=== PATIENT | female | born 1940 | race Caucasian/White ===

== ENCOUNTER 2018-11-10 07:09 | Inpatient (IN) | payer MEDICAID ==
[~2018-11-10] VITALS: Ht 162.6 cm; Wt 75.4 kg
[~2018-11-10 07:09] MED LIST: BENZAPRIL
[2018-11-10] MEDS ORDERED: ATEN50TA MT (08:18)
[2018-11-10] MEDS ORDERED: AMLO5TAB88 PO (08:18)
[2018-11-10] MEDS ORDERED: ATOR20TA65 MT (08:18)
[2018-11-10] MEDS ORDERED: ASPI-1158 MT (08:18)
[2018-11-10] MEDS ORDERED: CHOL200074 MT (08:18)
[2018-11-10] MEDS ORDERED: FENTANYL CITRATE/PF 50MCG/ML 2ML VIAL ONE (08:59)
[2018-11-10] MEDS ORDERED: LIDOCAINE HCL 1% 20ML VIAL (Pyxis) INJ ONE (08:59)
[2018-11-10] MEDS ORDERED: MIDAZOLAM HCL 2 MG/2 ML VIAL ONE (08:59)
[2018-11-10] MEDS ORDERED: IODIXANOL 320MG/ML 100 ML BOTTLE IV ONE (08:59)
[2018-11-10 09:09] LABS: HEMATOCRIT 33.2 % (36.0-48.0); HEMOGLOBIN 11.1 g/dL (12.0-16.0); MEAN CORPUSCULAR HEMOGLOBIN 28.8 pg (28.0-32.0); MEAN CORPUSCULAR VOLUME 86.4 fL (81.0-99.0); PLATELET 189 x1000/uL (130-400); RED BLOOD CELL COUNT 3.85 mill/uL (4.2-5.4); RED CELL DISTRIBUTION WIDTH 15.7 % (11.6-14.6)
[2018-11-10 09:11] LABS: CHLORIDE 111 mEq/L (98-107)
[2018-11-10] MEDS ORDERED: POTASSIUM CHLORIDE 20MEQ TABLET SR PO ONE (10:30)
[2018-11-10] MEDS ORDERED: NICARDIPINE 100MCG/ML 10ML VIAL (CATH LAB) IV ONE (10:34)
[2018-11-10] MEDS ORDERED: NITROGLYCERIN 50MCG/ML 10ML VIAL (CATH LAB) IV ONE (10:34)
[2018-11-10] MEDS ORDERED: HEPARIN SODIUM 1,000 UNIT/1ML VIAL IV ONE (10:34)
[2018-11-10] MEDS ORDERED: ACETAMINOPHEN 325MG TABLET PO PRN (13:00)
[2018-11-10 13:17] LABS: BG BASE EXCESS -3.7 mmol/L (-2.0-2.0); BG CARBOXYHEMOGLOBIN 0.3 % (0.5-1.5); BG DEOXYHEMOGLOBIN 3.6 % (0.0-5.0); BG FRACTION INSPIRED OXYGEN 28; BG HCO3 ACT 20.9 mmol/L (22.0-26.0); BG METHEMOGLOBIN 0.6 % (0.0-1.5); BG OXYGEN SATURATION 96.4 % (92.0-98.5); BG OXYHEMOGLOBIN 95.5 % (94.0-97.0); BG PCO2 36.3 mmHg (35.0-45.0); BG PH 7.378 (7.350-7.450); BG PO2 95.7 mmHg (75.0-100.0); BG SAMPLE SITE RIGHT BRACHIAL; BG TOTAL HEMOGLOBIN 11.3 g/dL (12.0-18.0); BG VENT MODE NASAL CANNULA
[2018-11-10 16:18] VITALS: BP 148/61
[2018-11-10 18:00] VITALS: BP 140/61
[2018-11-10 20:00] VITALS: BP 142/63
[2018-11-10] MEDS: ALLOPURINOL 300 MG TABLET PO SCH (20:38)
[2018-11-10] MEDS ORDERED: DOCUSATE SODIUM 100MG CAPSULE PO SCH (21:00)
[2018-11-10] MEDS ORDERED: BISACODYL 10MG SUPP PR PRN (21:00)
[2018-11-10] MEDS ORDERED: CHLORHEXIDINE GLUCONATE 4% EXTERNAL USE TOP SCH (21:00)
[2018-11-10 22:00] VITALS: BP 135/67
[2018-11-10 23:43] VITALS: BP 105/48
[2018-11-11] VITALS (49 sets, daily range): BP systolic 95–163; BP diastolic 23–68
[2018-11-11 04:37] LABS: BASOPHILS % 0.7 % (0.0-2.0); EOSINOPHILS % 1.1 % (0.0-5.0); HEMOGLOBIN. 10.8 g/dL (12.0-16.0); LYMPHOCYTES % 27.5 % (20.0-50.0); MEAN CORPUSCULAR VOLUME 85.9 fL (81.0-99.0); MEAN PLATELET VOLUME 8.4 fl (7.4-10.4); MONOCYTES % 6.1 % (2.0-8.0); NEUTROPHILS % 64.6 % (40.0-76.0); PLATELET 178 x1000/uL (130-400); RED BLOOD CELL COUNT 3.72 mill/uL (4.2-5.4); RED CELL DISTRIBUTION WIDTH 15.7 % (11.6-14.6)
[2018-11-11] MEDS: ALLOPURINOL 300 MG TABLET PO SCH (04:38)
[2018-11-11 04:40] LABS: CHLORIDE 112 mEq/L (98-107)
[2018-11-11 04:41] LABS: PROTHROMBIN TIME 10.2 sec (9.6-11.0)
[2018-11-11] MEDS ORDERED: ACETAMINOPHEN 500MG TABLET PO NR (05:00)
[2018-11-11] MEDS ORDERED: THROMBIN (BOVINE) 5000 UNITS/VIAL TOP ONE (05:24)
[2018-11-11] MEDS ORDERED: NORMAL SALINE 0.9% 10 ML SYR ONE (05:24)
[2018-11-11] MEDS ORDERED: BUPIVACAINE/EPINEPH/PF 0.25%/0.0005 10ML ONE (05:24)
[2018-11-11] MEDS ORDERED: BACITRACIN 50,000 UNITS/VIAL ONE (05:25)
[2018-11-11] MEDS ORDERED: AMINOCAPROIC ACID 10,000 MG in SODIUM CHLORIDE 0.9% 460 ML IV PRN (06:00)
[2018-11-11] MEDS ORDERED: NICARDIPINE 40MG/200ML PREMIX 200 ML IV PRN (06:00)
[2018-11-11] MEDS ORDERED: HEPARIN 1000 UNITS/ML 10ML ONE ×3 (06:00→09:54)
[2018-11-11] MEDS ORDERED: DEL NIDO ELECTROLYTE-S(PH 7.4) 1,000 ML IV PRN ×2 (06:00)
[2018-11-11] MEDS ORDERED: PHENYLEPHRINE 10 MG in DEXTROSE 5% WATER 250 ML IV PRN (06:00)
[2018-11-11] MEDS ORDERED: INSULIN REGULAR (DRIP) 100 UNITS in SODIUM CHLORIDE 0.9% 99 ML IV PRN (06:00)
[2018-11-11] MEDS ORDERED: DOBUTAMINE HCL 250 MG in DEXT 5% WATER 230 ML IV PRN (06:00)
[2018-11-11] MEDS ORDERED: EPINEPHRINE 4 MG in DEXT 5% WATER 246 ML IV PRN (06:00)
[2018-11-11] MEDS ORDERED: CEFAZOLIN 2,000 MG in DEXT 5% WATER 100 ML IV PRN (06:00)
[2018-11-11] MEDS ORDERED: PROPOFOL 200MG/20ML VIAL IV ONE (06:00)
[2018-11-11] MEDS ORDERED: NOREPINEPHRINE 4 MG in DEXT 5% WATER 246 ML IV PRN (06:00)
[2018-11-11] MEDS ORDERED: LIDOCAINE HCL/PF 1% 10 MG/ML 5ML VIAL ONE (06:02)
[2018-11-11] MEDS ORDERED: ETOMIDATE 2MG/ML 10ML VIAL IV ONE (06:02)
[2018-11-11] MEDS ORDERED: LABETALOL HCL 5MG/ML VIAL 20ML IV ONE (06:02)
[2018-11-11] MEDS ORDERED: ESMOLOL HCL 10MG/ML 10ML VIAL IV ONE (06:03)
[2018-11-11] MEDS ORDERED: ROCURONIUM BROMIDE 10MG/ML VIAL 5ML IV ONE (06:03)
[2018-11-11] MEDS ORDERED: FENTANYL CITRATE/PF 50MCG/ML 5ML VIAL ONE (06:06)
[2018-11-11] MEDS ORDERED: MIDAZOLAM HCL 2 MG/2 ML VIAL ONE (06:19)
[2018-11-11] MEDS ORDERED: DIPHENHYDRAMINE 50MG/ML VIAL ONE (06:21)
[2018-11-11] MEDS ORDERED: ALBUMIN HUMAN 25GM/100ML (25%) IV ONE (06:46)
[2018-11-11] MEDS ORDERED: AMINOCAPROIC ACID 250 MG/ML 20ML VIAL ONE (06:46)
[2018-11-11] MEDS ORDERED: PHENYLEPHRINE HCL 10 MG/ML 1ML (IV VIAL) IV ONE (06:46)
[2018-11-11] MEDS ORDERED: MANNITOL 20% 500 ML IV ONE (06:47)
[2018-11-11] MEDS ORDERED: SODIUM BICARBONATE 8.4% 1 MEQ/ML 50ML SYR IV ONE ×2 (06:47→06:48)
[2018-11-11] MEDS ORDERED: CALCIUM CHLORIDE 1GM/10ML SYR IV ONE (06:47)
[2018-11-11] MEDS ORDERED: HEPARIN 10,000 UNITS/ML VIAL ONE ×2 (06:47→07:01)
[2018-11-11] MEDS ORDERED: CHLORHEXIDINE GLUCONATE 4% EXTERNAL USE TOP SCH (09:00)
[2018-11-11] MEDS ORDERED: MAGNESIUM SULFATE 5GM/10ML VIAL IV ONE (09:45)
[2018-11-11] MEDS ORDERED: PROPOFOL 10MG/ML 100ML 100 ML IV ONE (11:16)
[2018-11-11] MEDS ORDERED: SODIUM CHLORIDE 0.9% 500 ML IV PRN (11:43)
[2018-11-11] MEDS ORDERED: ALBUMIN HUMAN 12.5G/250ML (5%) IV PRN (11:45)
[2018-11-11] MEDS ORDERED: MAGNESIUM SULFATE 3 GM in DEXT 5% WATER 100 ML IV PRN (11:45)
[2018-11-11] MEDS ORDERED: OXYCODONE HCL/ACETAMINOPHEN 5/325MG TABLET PO PRN (11:45)
[2018-11-11] MEDS ORDERED: ACETAMINOPHEN 325MG TABLET PO PRN (11:45)
[2018-11-11] MEDS ORDERED: MORPHINE SULFATE 2 MG/ML CPJ (NOT FOR IM USE) IV PRN (11:45)
[2018-11-11 11:46] LABS: BASOPHILS % 0.4 % (0.0-2.0); EOSINOPHILS % 0.3 % (0.0-5.0); HEMATOCRIT. 29.9 % (36.0-48.0); HEMOGLOBIN. 10.4 g/dL (12.0-16.0); LYMPHOCYTES % 12.6 % (20.0-50.0); MEAN CORPUSCULAR HEMOGLOBIN 29.4 pg (28.0-32.0); MEAN PLATELET VOLUME 8.4 fl (7.4-10.4); NEUTROPHILS % 84.7 % (40.0-76.0); PLATELET 99 x1000/uL (130-400); RED BLOOD CELL COUNT 3.52 mill/uL (4.2-5.4); RED CELL DISTRIBUTION WIDTH 15.1 % (11.6-14.6)
[2018-11-11 11:52] LABS: CHLORIDE 107 mEq/L (98-107)
[2018-11-11 11:58] LABS: PHOSPHORUS 3.4 mg/dL (2.5-4.9)
[2018-11-11] MEDS ORDERED: MAGNESIUM HYDROXIDE 400MG/5ML 30ML UDC PO SCH (12:00)
[2018-11-11 12:04] LABS: INR 1.1; PROTHROMBIN TIME 11.5 sec (9.6-11.0)
[2018-11-11 12:34] LABS: BG BASE EXCESS 0.1 mmol/L (-2.0-2.0); BG CARBOXYHEMOGLOBIN 0.3 % (0.5-1.5); BG DEOXYHEMOGLOBIN 0.8 % (0.0-5.0); BG FRACTION INSPIRED OXYGEN 100; BG HCO3 ACT 24.5 mmol/L (22.0-26.0); BG METHEMOGLOBIN 0.4 % (0.0-1.5); BG OXYGEN SATURATION 99.2 % (92.0-98.5); BG OXYHEMOGLOBIN 98.5 % (94.0-97.0); BG PCO2 38.9 mmHg (35.0-45.0); BG PH 7.417 (7.350-7.450); BG PO2 363.2 mmHg (75.0-100.0); BG PRESSURE SUPPORT 10; BG SAMPLE SITE A-LINE; BG TIDAL VOLUME(mL) 500 mL; BG TOTAL HEMOGLOBIN 11.6 g/dL (12.0-18.0); BG VENT MODE VENT - SIMV; BG VENT RATE 10 set
[2018-11-11 12:36] LABS: PARTIAL THROMBOPLASTIN TIME 85.4 sec (23.4-31.0)
[2018-11-11] MEDS: DEXT 5%/0.45% NACL 1000ML 1,000 ML IV SCH (12:56)
[2018-11-11] MEDS: NICARDIPINE 50 MG in SODIUM CHLORIDE 0.9% 230 ML IV PRN (12:57)
[2018-11-11 13:22] LABS: INR 1.1; PARTIAL THROMBOPLASTIN TIME 22.6 sec (23.4-31.0)
[2018-11-11 14:25] LABS: BG BASE EXCESS 0.8 mmol/L (-2.0-2.0); BG CARBOXYHEMOGLOBIN 0.1 % (0.5-1.5); BG DEOXYHEMOGLOBIN 3.3 % (0.0-5.0); BG FRACTION INSPIRED OXYGEN 40; BG HCO3 ACT 25.3 mmol/L (22.0-26.0); BG METHEMOGLOBIN 0.3 % (0.0-1.5); BG OXYGEN SATURATION 96.7 % (92.0-98.5); BG OXYHEMOGLOBIN 96.3 % (94.0-97.0); BG PCO2 40.3 mmHg (35.0-45.0); BG PH 7.416 (7.350-7.450); BG PO2 94.4 mmHg (75.0-100.0); BG PRESSURE SUPPORT 8; BG SAMPLE SITE A-LINE; BG TOTAL HEMOGLOBIN 11.6 g/dL (12.0-18.0); BG VENT MODE VENT - CPAP
[2018-11-11] MEDS: CEFAZOLIN 1000MG PREMIX 50 ML IV SCH ×2 (14:47→22:28)
[2018-11-11] MEDS: IPRATROPIUM/ALBUTEROL 0.5-3(2.5)MG/3ML NEB HHN SCH ×2 (15:20→20:33)
[2018-11-11] MEDS: KCL 10MEQ/50ML PREMIX 150 ML IV PRN (15:35)
[2018-11-11 16:30] LABS: BG BASE EXCESS 1.9 mmol/L (-2.0-2.0); BG CARBOXYHEMOGLOBIN 0.3 % (0.5-1.5); BG DEOXYHEMOGLOBIN 3.9 % (0.0-5.0); BG HCO3 ACT 26.5 mmol/L (22.0-26.0); BG METHEMOGLOBIN 0.2 % (0.0-1.5); BG OXYGEN SATURATION 96.1 % (92.0-98.5); BG OXYHEMOGLOBIN 95.6 % (94.0-97.0); BG PCO2 41.4 mmHg (35.0-45.0); BG PH 7.424 (7.350-7.450); BG PO2 88.7 mmHg (75.0-100.0); BG SAMPLE SITE A-LINE; BG TOTAL HEMOGLOBIN 11.2 g/dL (12.0-18.0); BG VENT MODE MASK - AEROSOL
[2018-11-11] MEDS: DOCUSATE SODIUM 100MG CAPSULE PO SCH (16:51)
[2018-11-11 18:47] LABS: HEMATOCRIT. 30.1 % (36.0-48.0); HEMOGLOBIN. 10.3 g/dL (12.0-16.0); MEAN CORPUSCULAR HEMOGLOBIN 29.3 pg (28.0-32.0); MEAN CORPUSCULAR VOLUME 85.8 fL (81.0-99.0); MEAN PLATELET VOLUME 8.7 fl (7.4-10.4); PLATELET 97 x1000/uL (130-400); RED BLOOD CELL COUNT 3.51 mill/uL (4.2-5.4); RED CELL DISTRIBUTION WIDTH 15.3 % (11.6-14.6)
[2018-11-11 18:51] LABS: CHLORIDE 116 mEq/L (98-107)
[2018-11-11 19:12] LABS: PLATELET ESTIMATE DECREASED
[2018-11-11 19:39] LABS: PHOSPHORUS 0.7 mg/dL (2.5-4.9)
[2018-11-11] MEDS: MAGNESIUM 1 G PREMIX 100 ML IV PRN (20:30)
[2018-11-11] MEDS: KCL 10MEQ/50ML PREMIX 200 ML IV PRN ×4 (20:30→23:35)
[2018-11-11] MEDS: OXYCODONE HCL/ACETAMINOPHEN 5/325MG TABLET PO PRN (22:14)
[2018-11-12] VITALS (93 sets, daily range): BP systolic 97–151; BP diastolic 32–76
[2018-11-12] MEDS ORDERED: POTASSIUM PHOS,M-BASIC-D-BASIC 30 MMOL in DEXT 5% WATER 500 ML IV NR ×2
[2018-11-12] MEDS: IPRATROPIUM/ALBUTEROL 0.5-3(2.5)MG/3ML NEB HHN SCH ×6 (00:13→21:02)
[2018-11-12] MEDS: NICARDIPINE 50 MG in SODIUM CHLORIDE 0.9% 230 ML IV PRN ×3 (00:35→08:53)
[2018-11-12 00:36] LABS: HEMATOCRIT. 31.1 % (36.0-48.0); HEMOGLOBIN. 10.7 g/dL (12.0-16.0); MEAN CORPUSCULAR HEMOGLOBIN 29.4 pg (28.0-32.0); MEAN CORPUSCULAR VOLUME 85.7 fL (81.0-99.0); MEAN PLATELET VOLUME 8.9 fl (7.4-10.4); PLATELET 91 x1000/uL (130-400); RED BLOOD CELL COUNT 3.63 mill/uL (4.2-5.4); RED CELL DISTRIBUTION WIDTH 15.6 % (11.6-14.6)
[2018-11-12 00:39] LABS: CHLORIDE 116 mEq/L (98-107)
[2018-11-12 01:57] LABS: PLATELET ESTIMATE DECREASED
[2018-11-12] MEDS ORDERED: FUROSEMIDE 20MG/2ML VIAL IVP NR (02:30)
[2018-11-12] MEDS ORDERED: INSULIN REGULAR (DRIP) 100 UNITS in SODIUM CHLORIDE 0.9% 100 ML IV ONE (02:45)
[2018-11-12] MEDS ORDERED: DEXTROSE 50% WATER 50ML SYRINGE IV PRN ×2 (03:00)
[2018-11-12] MEDS: BLOOD SUGAR DIAGNOSTIC STRIP TEST SCH ×21 (03:03→23:00)
[2018-11-12] MEDS: INSULIN REGULAR (DRIP) 100 UNITS in SODIUM CHLORIDE 0.9% 100 ML IV SCH ×2 (03:06→08:54)
[2018-11-12 05:47] LABS: HEMATOCRIT. 31.6 % (36.0-48.0); HEMOGLOBIN. 10.7 g/dL (12.0-16.0); MEAN CORPUSCULAR HEMOGLOBIN 29.1 pg (28.0-32.0); MEAN CORPUSCULAR VOLUME 86.4 fL (81.0-99.0); MEAN PLATELET VOLUME 8.8 fl (7.4-10.4); PLATELET 91 x1000/uL (130-400); RED BLOOD CELL COUNT 3.66 mill/uL (4.2-5.4); RED CELL DISTRIBUTION WIDTH 15.7 % (11.6-14.6)
[2018-11-12 05:49] LABS: CHLORIDE 115 mEq/L (98-107)
[2018-11-12 06:00] LABS: PHOSPHORUS 3.6 mg/dL (2.5-4.9)
[2018-11-12] MEDS: OXYCODONE HCL/ACETAMINOPHEN 5/325MG TABLET PO PRN ×2 (06:10→21:04)
[2018-11-12] MEDS: CEFAZOLIN 1000MG PREMIX 50 ML IV SCH ×2 (06:10→13:12)
[2018-11-12 06:58] LABS: PLATELET ESTIMATE DECREASED
[2018-11-12] MEDS ORDERED: FUROSEMIDE 40MG/4ML VIAL IVP NR ×2 (07:15→21:00)
[2018-11-12] MEDS ORDERED: ALBUMIN HUMAN 25GM/100ML (25%) IV NR (07:15)
[2018-11-12] MEDS: DEXT 5%/0.45% NACL 1000ML 1,000 ML IV SCH (07:53)
[2018-11-12] MEDS: MAGNESIUM 1 G PREMIX 100 ML IV PRN (08:10)
[2018-11-12] MEDS: DOCUSATE SODIUM 100MG CAPSULE PO SCH ×2 (08:14→16:11)
[2018-11-12] MEDS: FAMOTIDINE 20MG/2ML VIAL IV SCH (08:15)
[2018-11-12] MEDS: KCL 10MEQ/50ML PREMIX 200 ML IV PRN ×2 (08:52→09:56)
[2018-11-12] MEDS: KCL 10MEQ/50ML PREMIX 100 ML IV PRN (09:59)
[2018-11-12] MEDS ORDERED: AMLODIPINE 2.5MG TABLET PO SCH (10:00)
[2018-11-12] MEDS ORDERED: POTASSIUM CHLORIDE 10MEQ IN WATER 50ML PREMIX IV ONE (10:07)
[2018-11-12] MEDS ORDERED: MAGNESIUM SULFATE 1G IN DEXT 5% 100ML PREMIX IV ONE (10:07)
[2018-11-12] MEDS ORDERED: CEFAZOLIN 1000MG/50ML PREMIX IV ONE (10:07)
[2018-11-12] MEDS ORDERED: ALBUMIN HUMAN 12.5G/250ML (5%) IV ONE (10:07)
[2018-11-12 12:38] LABS: HEMATOCRIT. 31.8 % (36.0-48.0); HEMOGLOBIN. 10.7 g/dL (12.0-16.0); MEAN CORPUSCULAR VOLUME 86.3 fL (81.0-99.0); MEAN PLATELET VOLUME 8.8 fl (7.4-10.4); PLATELET 91 x1000/uL (130-400); RED BLOOD CELL COUNT 3.68 mill/uL (4.2-5.4); RED CELL DISTRIBUTION WIDTH 15.9 % (11.6-14.6)
[2018-11-12 12:46] LABS: CHLORIDE 113 mEq/L (98-107)
[2018-11-12 12:52] LABS: PHOSPHORUS 3.3 mg/dL (2.5-4.9)
[2018-11-12 13:20] LABS: PLATELET ESTIMATE DECREASED
[2018-11-12] MEDS ORDERED: ALBUMIN HUMAN 12.5G/250ML (5%) IV NR ×2 (14:00→19:45)
[2018-11-12] MEDS: ASPIRIN 81MG TABLET PO SCH (14:21)
[2018-11-12] MEDS ORDERED: KCL 20MEQ/100ML PREMIX 100 ML IV NR (16:00)
[2018-11-12] MEDS: AMIODARONE HCL 200 MG TABLET PO SCH (18:00)
[2018-11-12 18:37] LABS: CHLORIDE 111 mEq/L (98-107)
[2018-11-12] MEDS ORDERED: CALCIUM GLUCONATE 1,000 MG in DEXT 5% WATER 90 ML IV NR (21:00)
[2018-11-12] MEDS: DILTIAZEM HCL 60MG TABLET PO SCH (22:07)
[2018-11-13] VITALS (72 sets, daily range): BP systolic 100–153; BP diastolic 48–91
[2018-11-13] MEDS: IPRATROPIUM/ALBUTEROL 0.5-3(2.5)MG/3ML NEB HHN SCH ×6 (00:27→20:40)
[2018-11-13] MEDS: BLOOD SUGAR DIAGNOSTIC STRIP TEST SCH ×17 (00:32→21:31)
[2018-11-13] MEDS: DEXT 5%/0.45% NACL 1000ML 1,000 ML IV SCH (04:09)
[2018-11-13 05:35] LABS: BASOPHILS % 0.2 % (0.0-2.0); EOSINOPHILS % 0.3 % (0.0-5.0); HEMATOCRIT. 30.3 % (36.0-48.0); HEMOGLOBIN. 10.2 g/dL (12.0-16.0); LYMPHOCYTES % 8.4 % (20.0-50.0); MEAN CORPUSCULAR HEMOGLOBIN 29.1 pg (28.0-32.0); MEAN CORPUSCULAR VOLUME 86.6 fL (81.0-99.0); MEAN PLATELET VOLUME 9.2 fl (7.4-10.4); MONOCYTES % 4.8 % (2.0-8.0); NEUTROPHILS % 86.3 % (40.0-76.0); PLATELET 72 x1000/uL (130-400); RED CELL DISTRIBUTION WIDTH 15.8 % (11.6-14.6)
[2018-11-13 05:42] LABS: CHLORIDE 110 mEq/L (98-107)
[2018-11-13 05:47] LABS: PHOSPHORUS 3.9 mg/dL (2.5-4.9)
[2018-11-13] MEDS: MAGNESIUM 1 G PREMIX 100 ML IV PRN ×2 (06:09→09:45)
[2018-11-13] MEDS: DILTIAZEM HCL 60MG TABLET PO SCH ×3 (06:18→21:37)
[2018-11-13] MEDS ORDERED: FUROSEMIDE 40MG/4ML VIAL IVP SCH (07:30)
[2018-11-13 07:34] LABS: BG BASE EXCESS -2.3 mmol/L (-2.0-2.0); BG CARBOXYHEMOGLOBIN 0.2 % (0.5-1.5); BG DEOXYHEMOGLOBIN 10.6 % (0.0-5.0); BG FRACTION INSPIRED OXYGEN 36; BG HCO3 ACT 21.6 mmol/L (22.0-26.0); BG METHEMOGLOBIN 0.1 % (0.0-1.5); BG OXYGEN SATURATION 89.4 % (92.0-98.5); BG OXYHEMOGLOBIN 89.1 % (94.0-97.0); BG PCO2 34.2 mmHg (35.0-45.0); BG PH 7.419 (7.350-7.450); BG PO2 56.3 mmHg (75.0-100.0); BG SAMPLE SITE RIGHT RADIAL; BG TOTAL HEMOGLOBIN 11.2 g/dL (12.0-18.0); BG VENT MODE NASAL CANNULA
[2018-11-13] MEDS: FAMOTIDINE 20MG/2ML VIAL IV SCH (08:19)
[2018-11-13] MEDS: ASPIRIN 81MG TABLET PO SCH (08:19)
[2018-11-13] MEDS: AMIODARONE HCL 200 MG TABLET PO SCH ×3 (08:19→17:33)
[2018-11-13] MEDS: DOCUSATE SODIUM 100MG CAPSULE PO SCH ×2 (08:19→17:32)
[2018-11-13] MEDS ORDERED: DEXTROSE 50% WATER 50ML SYRINGE IV PRN (10:00)
[2018-11-13] MEDS ORDERED: KCL 20MEQ/100ML PREMIX 50 ML IV SCH (10:00)
[2018-11-13 10:03] LABS: BG BASE EXCESS -2.5 mmol/L (-2.0-2.0); BG CARBOXYHEMOGLOBIN 0.3 % (0.5-1.5); BG FRACTION INSPIRED OXYGEN 100; BG HCO3 ACT 21.4 mmol/L (22.0-26.0); BG METHEMOGLOBIN 0.3 % (0.0-1.5); BG OXYHEMOGLOBIN 92.4 % (94.0-97.0); BG PCO2 34.1 mmHg (35.0-45.0); BG PH 7.416 (7.350-7.450); BG SAMPLE SITE RIGHT BRACHIAL; BG TOTAL HEMOGLOBIN 11.5 g/dL (12.0-18.0); BG VENT MODE MASK - NRB
[2018-11-13] MEDS: INSULIN GLARGINE UD 100 UNITS/ML SYR SUBCUT SCH ×2 (11:16→21:39)
[2018-11-13] MEDS: INSULIN LISPRO 100 UNITS/ML SUBCUT SCH ×3 (12:20→21:37)
[2018-11-13] MEDS ORDERED: BUMETANIDE 2.5MG/10ML VIAL IV NR (14:30)
[2018-11-13] MEDS: BUMETANIDE IV SCH (18:04)
[2018-11-13] MEDS: CONTAINER EMPTY IV SCH (18:04)
[2018-11-13 19:36] LABS: CHLORIDE 104 mEq/L (98-107)
[2018-11-13] MEDS: MAGNESIUM 2 G PREMIX 50 ML IV PRN (23:43)
[2018-11-14] VITALS (49 sets, daily range): BP systolic 105–148; BP diastolic 34–74
[2018-11-14] MEDS: BUMETANIDE IV SCH (00:26)
[2018-11-14] MEDS: CONTAINER EMPTY IV SCH (00:26)
[2018-11-14] MEDS: IPRATROPIUM/ALBUTEROL 0.5-3(2.5)MG/3ML NEB HHN SCH ×6 (00:33→20:23)
[2018-11-14 01:02] LABS: CHLORIDE 105 mEq/L (98-107)
[2018-11-14] MEDS: KCL 10MEQ/50ML PREMIX 100 ML IV PRN (01:43)
[2018-11-14 05:03] LABS: CHLORIDE 105 mEq/L (98-107)
[2018-11-14 05:09] LABS: BASOPHILS % 0.4 % (0.0-2.0); EOSINOPHILS % 0.7 % (0.0-5.0); HEMATOCRIT. 31.3 % (36.0-48.0); HEMOGLOBIN. 10.5 g/dL (12.0-16.0); LYMPHOCYTES % 9.2 % (20.0-50.0); MEAN CORPUSCULAR HEMOGLOBIN 28.9 pg (28.0-32.0); MEAN CORPUSCULAR VOLUME 86.2 fL (81.0-99.0); MEAN PLATELET VOLUME 9.3 fl (7.4-10.4); MONOCYTES % 4.9 % (2.0-8.0); NEUTROPHILS % 84.8 % (40.0-76.0); PHOSPHORUS 4.2 mg/dL (2.5-4.9); PLATELET 85 x1000/uL (130-400); RED BLOOD CELL COUNT 3.63 mill/uL (4.2-5.4); RED CELL DISTRIBUTION WIDTH 15.8 % (11.6-14.6)
[2018-11-14] MEDS: DILTIAZEM HCL 60MG TABLET PO SCH ×3 (06:18→22:10)
[2018-11-14] MEDS: MAGNESIUM 2 G PREMIX 50 ML IV PRN ×2 (06:18→22:10)
[2018-11-14] MEDS: KCL 10MEQ/50ML PREMIX 150 ML IV PRN ×2 (06:19→20:33)
[2018-11-14] MEDS: INSULIN LISPRO 100 UNITS/ML SUBCUT SCH ×4 (07:52→21:00)
[2018-11-14] MEDS: BLOOD SUGAR DIAGNOSTIC STRIP TEST SCH ×4 (07:52→21:30)
[2018-11-14] MEDS: AMIODARONE HCL 200 MG TABLET PO SCH ×3 (08:40→17:45)
[2018-11-14] MEDS: DOCUSATE SODIUM 100MG CAPSULE PO SCH ×2 (08:40→17:45)
[2018-11-14] MEDS: FAMOTIDINE 20MG/2ML VIAL IV SCH (08:40)
[2018-11-14] MEDS ORDERED: BUMETANIDE IV SCH (09:00)
[2018-11-14] MEDS ORDERED: CONTAINER EMPTY IV SCH (09:00)
[2018-11-14 09:22] LABS: BG BASE EXCESS 4.1 mmol/L (-2.0-2.0); BG CARBOXYHEMOGLOBIN 0.3 % (0.5-1.5); BG DEOXYHEMOGLOBIN 0.9 % (0.0-5.0); BG FRACTION INSPIRED OXYGEN 100; BG HCO3 ACT 27.2 mmol/L (22.0-26.0); BG OXYGEN SATURATION 99.1 % (92.0-98.5); BG OXYHEMOGLOBIN 98.8 % (94.0-97.0); BG PCO2 35.9 mmHg (35.0-45.0); BG PH 7.498 (7.350-7.450); BG PO2 201.9 mmHg (75.0-100.0); BG SAMPLE SITE RIGHT BRACHIAL; BG VENT MODE MASK - NRB
[2018-11-14] MEDS: INSULIN GLARGINE UD 100 UNITS/ML SYR SUBCUT SCH ×2 (10:19→22:11)
[2018-11-14 12:02] LABS: BG BASE EXCESS 7.4 mmol/L (-2.0-2.0); BG DEOXYHEMOGLOBIN 6.1 % (0.0-5.0); BG FRACTION INSPIRED OXYGEN 34; BG METHEMOGLOBIN 0.1 % (0.0-1.5); BG OXYGEN SATURATION 93.9 % (92.0-98.5); BG OXYHEMOGLOBIN 93.8 % (94.0-97.0); BG PH 7.507 (7.350-7.450); BG PO2 67.1 mmHg (75.0-100.0); BG SAMPLE SITE RIGHT RADIAL; BG TOTAL HEMOGLOBIN 12.2 g/dL (12.0-18.0); BG VENT MODE NASAL CANNULA
[2018-11-14] MEDS ORDERED: ASPIRIN 81MG TABLET PO SCH (13:30)
[2018-11-14 19:25] LABS: CHLORIDE 98 mEq/L (98-107)
[2018-11-15] VITALS (39 sets, daily range): BP systolic 107–149; BP diastolic 52–81
[2018-11-15] MEDS: IPRATROPIUM/ALBUTEROL 0.5-3(2.5)MG/3ML NEB HHN SCH ×6 (00:39→20:35)
[2018-11-15] MEDS: OXYCODONE HCL/ACETAMINOPHEN 5/325MG TABLET PO PRN (00:58)
[2018-11-15 06:01] LABS: BASOPHILS % 0.8 % (0.0-2.0); EOSINOPHILS % 1.5 % (0.0-5.0); HEMATOCRIT. 33.2 % (36.0-48.0); HEMOGLOBIN. 11.2 g/dL (12.0-16.0); LYMPHOCYTES % 14.6 % (20.0-50.0); MEAN CORPUSCULAR HEMOGLOBIN 29.2 pg (28.0-32.0); MEAN CORPUSCULAR VOLUME 86.3 fL (81.0-99.0); MONOCYTES % 6.5 % (2.0-8.0); NEUTROPHILS % 76.6 % (40.0-76.0); PLATELET 106 x1000/uL (130-400); RED BLOOD CELL COUNT 3.85 mill/uL (4.2-5.4); RED CELL DISTRIBUTION WIDTH 15.6 % (11.6-14.6)
[2018-11-15 06:07] LABS: CHLORIDE 99 mEq/L (98-107)
[2018-11-15] MEDS ORDERED: KCL 10MEQ/50ML PREMIX 150 ML IV PRN (06:47)
[2018-11-15] MEDS: DILTIAZEM HCL 60MG TABLET PO SCH ×3 (06:54→21:28)
[2018-11-15] MEDS ORDERED: MAGNESIUM 1 G PREMIX 100 ML IV PRN (07:45)
[2018-11-15] MEDS: BLOOD SUGAR DIAGNOSTIC STRIP TEST SCH ×4 (08:03→21:17)
[2018-11-15] MEDS: INSULIN LISPRO 100 UNITS/ML SUBCUT SCH ×4 (08:03→21:00)
[2018-11-15] MEDS: ASPIRIN 81MG TABLET PO SCH (09:03)
[2018-11-15] MEDS: FAMOTIDINE 20MG/2ML VIAL IV SCH (09:04)
[2018-11-15] MEDS: DOCUSATE SODIUM 100MG CAPSULE PO SCH ×2 (09:04→17:34)
[2018-11-15] MEDS: AMIODARONE HCL 200 MG TABLET PO SCH ×3 (09:04→17:34)
[2018-11-15] MEDS: INSULIN GLARGINE UD 100 UNITS/ML SYR SUBCUT SCH ×2 (09:10→21:27)
[2018-11-15 09:12] LABS: BG BASE EXCESS 8.1 mmol/L (-2.0-2.0); BG CARBOXYHEMOGLOBIN 0.2 % (0.5-1.5); BG DEOXYHEMOGLOBIN 2.6 % (0.0-5.0); BG FRACTION INSPIRED OXYGEN 34; BG HCO3 ACT 32.3 mmol/L (22.0-26.0); BG METHEMOGLOBIN 0.3 % (0.0-1.5); BG OXYGEN SATURATION 97.4 % (92.0-98.5); BG OXYHEMOGLOBIN 96.9 % (94.0-97.0); BG PCO2 43.3 mmHg (35.0-45.0); BG PO2 97.6 mmHg (75.0-100.0); BG SAMPLE SITE RIGHT RADIAL; BG TOTAL HEMOGLOBIN 12.1 g/dL (12.0-18.0); BG VENT MODE NASAL CANNULA
[2018-11-15] MEDS: ONDANSETRON HCL 4MG/2ML INJ IV PRN (10:51)
[2018-11-15] MEDS ORDERED: DOCUSATE SODIUM 100MG CAPSULE PO SCH (17:00)
[2018-11-15] MEDS: POLYETHYLENE GLYCOL 3350 (17GM) 1 DOSE PACK PO SCH (21:26)
[2018-11-16] VITALS (12 sets, daily range): BP systolic 107–134; BP diastolic 43–64
[2018-11-16] MEDS: IPRATROPIUM/ALBUTEROL 0.5-3(2.5)MG/3ML NEB HHN SCH ×6 (00:28→20:42)
[2018-11-16] MEDS: BLOOD SUGAR DIAGNOSTIC STRIP TEST SCH ×4 (05:58→20:21)
[2018-11-16] MEDS: INSULIN LISPRO 100 UNITS/ML SUBCUT SCH ×4 (05:58→20:21)
[2018-11-16 06:28] LABS: BASOPHILS % 0.2 % (0.0-2.0); HEMATOCRIT. 32.3 % (36.0-48.0); HEMOGLOBIN. 10.9 g/dL (12.0-16.0); LYMPHOCYTES % 14.3 % (20.0-50.0); MEAN CORPUSCULAR HEMOGLOBIN 29.2 pg (28.0-32.0); MEAN CORPUSCULAR VOLUME 86.7 fL (81.0-99.0); MEAN PLATELET VOLUME 8.8 fl (7.4-10.4); MONOCYTES % 10.2 % (2.0-8.0); NEUTROPHILS % 73.3 % (40.0-76.0); PLATELET 114 x1000/uL (130-400); RED BLOOD CELL COUNT 3.73 mill/uL (4.2-5.4); RED CELL DISTRIBUTION WIDTH 15.5 % (11.6-14.6)
[2018-11-16 06:34] LABS: CHLORIDE 99 mEq/L (98-107)
[2018-11-16 06:40] LABS: PHOSPHORUS 4.7 mg/dL (2.5-4.9)
[2018-11-16] MEDS: DILTIAZEM HCL 60MG TABLET PO SCH ×3 (06:40→21:36)
[2018-11-16] MEDS: AMIODARONE HCL 200 MG TABLET PO SCH ×3 (08:27→18:13)
[2018-11-16] MEDS: FAMOTIDINE 20MG/2ML VIAL IV SCH (08:27)
[2018-11-16] MEDS: ASPIRIN 81MG TABLET PO SCH (08:27)
[2018-11-16] MEDS: DOCUSATE SODIUM 100MG CAPSULE PO SCH ×2 (08:27→18:13)
[2018-11-16] MEDS: INSULIN GLARGINE UD 100 UNITS/ML SYR SUBCUT SCH ×2 (09:02→21:37)
[2018-11-16] MEDS: POLYETHYLENE GLYCOL 3350 (17GM) 1 DOSE PACK PO SCH (20:27)
[2018-11-17] VITALS (11 sets, daily range): BP systolic 101–136; BP diastolic 42–71
[2018-11-17] MEDS: IPRATROPIUM/ALBUTEROL 0.5-3(2.5)MG/3ML NEB HHN SCH ×5 (01:06→16:03)
[2018-11-17] MEDS: DILTIAZEM HCL 60MG TABLET PO SCH (05:35)
[2018-11-17] MEDS: BLOOD SUGAR DIAGNOSTIC STRIP TEST SCH ×3 (07:10→16:55)
[2018-11-17] MEDS: INSULIN LISPRO 100 UNITS/ML SUBCUT SCH ×3 (07:10→17:08)
[2018-11-17] MEDS: FAMOTIDINE 20MG/2ML VIAL IV SCH (08:12)
[2018-11-17] MEDS: DOCUSATE SODIUM 100MG CAPSULE PO SCH ×2 (08:12→17:08)
[2018-11-17] MEDS: ASPIRIN 81MG TABLET PO SCH (08:12)
[2018-11-17] MEDS: AMIODARONE HCL 200 MG TABLET PO SCH ×2 (08:13→11:31)
[2018-11-17] MEDS: INSULIN GLARGINE UD 100 UNITS/ML SYR SUBCUT SCH (11:31)
[2018-11-17] MEDS ORDERED: DILTIAZEM HCL 180MG CAPSULE CD 24HR PO SCH (12:00)
[2018-11-17] MEDS ORDERED: NA PHOS,M-B/NA PHOS,DI-BA ENEMA 118ML PR NR (12:45)
[2018-11-17] MEDS ORDERED: LACTULOSE 20G/30ML UDC PO SCH (17:00)
[2018-11-17] MEDS: ONDANSETRON HCL 4MG/2ML INJ IV PRN (17:07)
[2018-11-17] MEDS ORDERED: AMIODARONE HCL 200 MG TABLET PO SCH (17:20)
[2018-11-18] MEDS ORDERED: NA PHOS,M-B/NA PHOS,DI-BA ENEMA 118ML PR PRN (09:00)
== END 2018-11-17 18:26 | disposition home health service (06) | DRG 163 ==
LOC: CCL 07:09 → 3WST 07:10 → ORIP 11-11 06:02 → CVICU 11-11 07:02 → 3WST 11-15 18:32
PROVIDERS: ADMIT Internal Medicine Cardiovascular Disease; ATTEND Internal Medicine Cardiovascular Disease
PROC: 4A023N8 Measurement of Cardiac Sampling and Pressure, Bilateral, Percutaneous Approach (ICD-10-PCS; 2018-11-10)
PROC: B2111ZZ Fluoroscopy of Multiple Coronary Arteries using Low Osmolar Contrast (ICD-10-PCS; 2018-11-10)
PROC: 02RF08Z Replacement of Aortic Valve with Zooplastic Tissue, Open Approach (ICD-10-PCS; principal; 2018-11-11)
PROC: 5A1221Z Performance of Cardiac Output, Continuous (ICD-10-PCS; 2018-11-11)
PROC: 30233N1 Transfusion of Nonautologous Red Blood Cells into Peripheral Vein, Percutaneous Approach (ICD-10-PCS; 2018-11-11)
PROC: B24BZZ4 Ultrasonography of Heart with Aorta, Transesophageal (ICD-10-PCS; 2018-11-11)
PROC: 02HV33Z Insertion of Infusion Device into Superior Vena Cava, Percutaneous Approach (ICD-10-PCS; 2018-11-14)
PROC: B5181ZA Fluoroscopy of Superior Vena Cava using Low Osmolar Contrast, Guidance (ICD-10-PCS; 2018-11-14)
PROC: B548ZZA Ultrasonography of Superior Vena Cava, Guidance (ICD-10-PCS; 2018-11-14)
DX: I35.0 Nonrheumatic aortic (valve) stenosis (principal); J96.01 Acute respiratory failure with hypoxia; E87.0 Hyperosmolality and hypernatremia; D69.6 Thrombocytopenia, unspecified; I50.22 Chronic systolic (congestive) heart failure; E83.41 Hypermagnesemia; I11.0 Hypertensive heart disease with heart failure; R53.81 Other malaise; I48.91 Unspecified atrial fibrillation; E87.6 Hypokalemia; I25.10 Atherosclerotic heart disease of native coronary artery without angina pectoris; R26.9 Unspecified abnormalities of gait and mobility; Q90.9 Down syndrome, unspecified; Z87.01 Personal history of pneumonia (recurrent); Z90.710 Acquired absence of both cervix and uterus
CPT/HCPCS: 36415; 36573; 36600; 71045; 71250; 76604; 80048; 82330; 82375; 82805; 82962; 83036; 83735; 84100; 85027; 85347; 85384; 85520; 86850; 86900; 86920; 87070; 87075; 88305; 92610; 93005; 93460; 93880; 94002; 94640; 97116; 97163; 97166; 97530; 97535; C1725; C1729; C1751; C1758; C1760; C1769; C1887; C1893; J0171; J0610; J0690; J1200; J1250; J1644; J1815; J1940; J2250; J2270; J2370; J2405; J2704; J3010; J3475; J3480; J3490; J7040; J7050; J7060; J7620; L3908; P9016; P9021; P9041; P9047; Q9967